=== PATIENT | female | born 1935 | race Caucasian/White ===

== ENCOUNTER 2016-09-11 06:56 | Day surgery (SDC) | payer OTHER, BC ==
[~2016-09-11] VITALS: Ht 162.6 cm; Wt 46.7 kg
[~2016-09-11 06:56] MED LIST: ATIVAN0.5 MG PO; DAILY VITE1 EAC1 PO; TOPROL XL50 MG PO
[2016-09-11 07:56] VITALS: BP 206/83
[2016-09-11 14:12] VITALS: BP 172/76
[2016-09-11 14:43] VITALS: BP 181/84
== END 2016-09-11 14:50 | disposition home or self-care (01) ==
LOC: SDC 06:56 → NUC 07:00 → SDC 09:00
PROC: 0HBU0ZZ Excision of Left Breast, Open Approach (ICD-10-PCS; principal; 2016-09-11)
PROC: 3E0W3KZ Introduction of Other Diagnostic Substance into Lymphatics, Percutaneous Approach (ICD-10-PCS; principal; 2016-09-11)
PROC: 07B60ZX Excision of Left Axillary Lymphatic, Open Approach, Diagnostic (ICD-10-PCS; principal; 2016-09-11)
DX: C50.912 Malignant neoplasm of unspecified site of left female breast (principal); F41.9 Anxiety disorder, unspecified; I10 Essential (primary) hypertension
CPT/HCPCS: 78195; 78999; 88305; 88307; A9541; J0131; J0690; J1100; J1170; J2405; J3010; S0020